=== PATIENT | male | born 1950 | race Caucasian/White ===

== ENCOUNTER 2018-07-17 05:31 | Inpatient (IN) | payer OTHER ==
[2018-07-10 13:33] LABS: URINE BILIRUBIN NEGATIVE (Negative); URINE BLOOD NEGATIVE (Negative); URINE CLARITY CLEAR; URINE COLOR YELLOW; URINE GLUCOSE-RANDOM* NEGATIVE (Negative); URINE KETONES NEGATIVE (Negative); URINE LEUKOCYTES-REFLEX NEGATIVE (Negative); URINE NITRITE-REFLEX NEGATIVE (Negative); URINE PROTEIN (DIPSTICK) NEGATIVE (Negative); URINE UROBILINOGEN 0.2 E.U./dl (0.2-1.0)
[2018-07-10 13:34] LABS: HEMATOCRIT 37.4 % (42.0-52.0); MCH 35.3 pg (26.0-34.0); MCHC 34.8 g/dL (28.0-37.0); MCV 101.5 fL (80.0-100.0); RBC 3.69 mil/uL (4.50-6.00); RDW 13.8 % (10.5-14.5); WBC 6.8 thou/uL (4.0-11.0)
[2018-07-10 13:44] LABS: PROTIME 10.2 Seconds (9.3-11.4)
[2018-07-10 13:50] LABS: ALBUMIN 4.2 g/dL (3.4-5.0); CALCIUM 9.6 mg/dL (8.5-10.1); CREATININE 1.8 mg/dL (0.7-1.3); POTASSIUM 5.1 mmol/L (3.5-5.1)
[2018-07-17] VITALS (9 sets, daily range): BP systolic 120–157; BP diastolic 61–86
[~2018-07-17] VITALS: Ht 180.3 cm; Wt 90.7 kg
--- NOTE | ~2018-07-17 | O ---
[facility] [place] [address] OPERATIVE REPORT Name: SERGIO MATUTE Room #: 150-5 ADM IN M.R.#: [id number] Admission: 07/17/18 Attend Phys: Eric Najera MD Discharge: Date of : 48 Report #: [id number] THIS REPORT FOR: //name// CC: Eric Virgen DATE OF SERVICE: 07/17/2018 PREOPERATIVE DIAGNOSIS: End-stage degenerative osteoarthritis of the left hip. POSTOPERATIVE DIAGNOSIS: End-stage degenerative osteoarthritis of the left hip. PROCEDURE: Left total hip arthroplasty. SURGEON: Eric Najera M.D. INDICATIONS: This active 68-year-old gentleman complains of multiple areas of chronic pain related to degenerative osteoarthritis. This involves both the lumbar spine and both hips. His most significant problem seems to be the left hip, where he has severe pain, significant crepitus and significant x-ray changes. We have elected to go ahead with left total hip arthroplasty at this time. DESCRIPTION OF PROCEDURE: The patient was taken to the operating room, where he was placed under general anesthesia. Prophylactic intravenous antibiotics were administered. He was turned to the right lateral decubitus position. The left hip and thigh were meticulously prepped and draped. A slightly curving skin incision was made centered over the greater trochanter and extending posteriorly. This was passed through fascia and the gluteus was spread bluntly, exposing the posterior aspect of the hip joint. The short external rotators and capsule were taken down and tagged with several #1 Tevdek sutures. The hip was dislocated and marked degenerative change on both the femoral head and the acetabulum was noted. There was significant bony spurring, which was debrided. A femoral neck osteotomy was performed and the canal was opened using reamers and hand broaches. The Barba and Nephew press-fit noncemented stem system was utilized. The femoral stem that seemed to best suited for a size 14 stem. A trial stem was inserted and the calcar trimmed down to an appropriate level. The trial component was removed and attention directed to the acetabulum. Good exposure was established and the acetabulum was sequentially reamed, gradually advancing to a 56-mm reamer. A 56-mm fenestrated cup was then inserted, positioning this in alignment with his true acetabulum, which placed this at about 45 degrees off of vertical and about 20 degrees of anteversion. That cup was impacted into position and it seated nicely and appeared to be secure. In addition, 3 screws were placed through the apex fenestrations in the cup, engaging good periacetabular bone. This resulted in excellent stability. A 40-mm cup liner was then inserted, placing the 20-degree elevated wheatley at the [address] [place] [id number] OPERATIVE REPORT Name: SERGIO MATUTE Room #: 150-5 [facility] IN ..#: [id number] Admission: 07/17/18 Attend Phys: Eric Najera MD Discharge: Date of : 48 Report #: [id number] o'clock posterior position. This was snapped into place and it seated nicely and appeared to be secure. The permanent femoral stem was then brought on to the field. The Barba and Nephew press-fit size 14, standard neck offset was selected. This was then inserted in about 15-20 degrees of anteversion. It was impacted into position and seated nicely and appeared to be secure. A trial reduction was performed and the hip seemed to be best suited for a +4-mm neck length. This resulted in satisfactory alignment, range of motion, stability and leg length. The trial head was removed and a permanent 40 mm x +4 mm cobalt chrome head was then impacted on to the Crocker taper neck. The hip was then reduced and once again, alignment, range of motion, stability and leg length were assessed and felt to be satisfactory. The wound was copiously irrigated. Good hemostasis was established. The short external rotators and capsule were repaired back to bone using the Tevdek sutures passed through drill holes into the greater trochanter. A single Hemovac was left in the wound, exiting through a separate stab incision. The fascia was closed with multiple #1 Vicryl sutures. The subcutaneous tissues were closed with 0 Monocryl. The skin was closed with skin farzana. A sterile dressing was applied. The patient was awakened and returned to the recovery room in good condition. <ELECTRONICALLY SIGNED> By: Eric Najera MD 07/17/18 1126 [id number] Eric Najera MD /nt
--- NOTE | ~2018-07-17 | D ---
[facility] [place] [address] DISCHARGE SUMMARY Name: SERGIO MATUTE Room #: 464-P [facility] IN M.R.#: [id number] Admission: 07/17/18 Attend Phys: Eric Najera MD Discharge: 07/19/18 Date of : 48 Report #: [id number] THIS REPORT FOR: //name// CC: Eric Virgen DATE OF SERVICE: 07/19/2018 FINAL DIAGNOSIS: End-stage degenerative arthritis, left hip. OPERATIONS AND PROCEDURES: Left total hip arthroplasty. HISTORY OF PRESENT ILLNESS: This 68-year-old gentleman complains of chronic progressive left hip pain, unresponsive to conservative measures. Clinical and radiographic evaluation revealed rather significant degenerative osteoarthritis. He has elected to go ahead with total hip arthroplasty. HOSPITAL COURSE: The patient was taken to the operating room and underwent left total hip arthroplasty, which he tolerated well. Postoperatively, his course was largely unremarkable. He was noted to have a mild renal insufficiency, which was evaluated and felt to be stable. He resumed a regular diet. He was placed on Lovenox as a temporary bridge anticoagulation. He was able to advance from IV analgesics to oral analgesics. He did nicely with physical therapy. He seems to be safe and independent, ambulating with a walker with full weightbearing at this point. The dressing is clean and dry. He has no other significant problems or questions and is anxious for hospital discharge home today. DISCHARGE MEDICATIONS: Include allopurinol 300 mg daily, lisinopril 20 mg daily, hydrochlorothiazide 25 mg daily, Flomax 0.4 mg b.i.d., aspirin 81 mg daily, hydrocodone 10 mg q.6 hours p.r.n. for pain. DISCHARGE INSTRUCTIONS: He will continue a regular diet at home. He will transition from Lovenox to low dose aspirin, which we have discussed at some length. He will continue with the gentle activity and exercise program. I have asked him to call me should there be any problems or questions. I will plan to see him back in my office in 1 week for a followup and then again the following week for suture removal. <ELECTRONICALLY SIGNED> By: Eric Najera MD 07/24/18 0743 1322 1347 Eric Najera MD /nt
[~2018-07-17 05:31] MED LIST: ALLOPURINOL 30300 M1 PO; ASPIRIN EC81 M1 PO; AVODART0.5 MG PO; FLOMAX0.4 MG PO; HYDROCHLOROTHIA25 M2 PO; LISINOPRIL20 MG PO; OMEPRAZOLE40 MG PO; TYLENOL EXTRA500 MG PO
[2018-07-18 03:34] VITALS: BP 125/84
[2018-07-18 06:13] LABS: HEMATOCRIT 25.6 % (42.0-52.0); HEMOGLOBIN 9.1 gm/dL (14.0-18.0); MCH 36.1 pg (26.0-34.0); MCHC 35.4 g/dL (28.0-37.0); MCV 102.2 fL (80.0-100.0); RBC 2.51 mil/uL (4.50-6.00); RDW 13.4 % (10.5-14.5); WBC 10.1 thou/uL (4.0-11.0)
[2018-07-18 06:44] LABS: CALCIUM 8.6 mg/dL (8.5-10.1); CREATININE 1.4 mg/dL (0.7-1.3); MAGNESIUM 1.8 mg/dL (1.8-2.4); POTASSIUM 5.4 mmol/L (3.5-5.1)
[2018-07-18 08:00] VITALS: BP 120/80
[2018-07-18 16:00] VITALS: BP 106/61
[2018-07-18 20:33] VITALS: BP 129/74
[2018-07-19 02:55] VITALS: BP 130/74
[2018-07-19 05:56] LABS: HEMATOCRIT 23.3 % (42.0-52.0); HEMOGLOBIN 8.3 gm/dL (14.0-18.0); MCH 36.3 pg (26.0-34.0); MCHC 35.6 g/dL (28.0-37.0); RBC 2.28 mil/uL (4.50-6.00); RDW 13.5 % (10.5-14.5); WBC 6.3 thou/uL (4.0-11.0)
[2018-07-19 06:04] LABS: CALCIUM 8.4 mg/dL (8.5-10.1); CREATININE 1.4 mg/dL (0.7-1.3); MAGNESIUM 1.7 mg/dL (1.8-2.4); POTASSIUM 4.5 mmol/L (3.5-5.1)
[2018-07-19 08:14] VITALS: BP 133/69
[2018-07-19 13:40] VITALS: BP 133/69
== END 2018-07-19 14:50 | disposition home or self-care (01) | DRG 469 ==
LOC: TBA 05:31 → 4W 05:31 → PRE 06:31 → 4W 07:49 → PRE 12:42 → ENTRNSPT 07-19 13:53 → EDTRNSPTSTS 07-19 13:56 → CMPTRNSPT 07-19 14:22 → 4W 07-19 14:50
PROVIDERS: Internal Medicine; Orthopaedic Surgery
PROC: 0SRB0JA Replacement of Left Hip Joint with Synthetic Substitute, Uncemented, Open Approach (ICD-10-PCS; principal; 2018-07-17)
DX: M16.12 Unilateral primary osteoarthritis, left hip (principal); N17.0 Acute kidney failure with tubular necrosis; I12.9 Hypertensive chronic kidney disease with stage 1 through stage 4 chronic kidney disease, or unspecified chronic kidney disease; N40.0 Benign prostatic hyperplasia without lower urinary tract symptoms; D64.9 Anemia, unspecified; M10.9 Gout, unspecified; K21.9 Gastro-esophageal reflux disease without esophagitis; Z23 Encounter for immunization; N18.9 Chronic kidney disease, unspecified; Z79.899 Other long term (current) drug therapy
CPT/HCPCS: 10047; 50010; 50101; 50382; 50414; 51412; 51771; 53000; 53367; 56521; 56525; 56527; 57095; 62110; 62900; 70005

== ENCOUNTER 2019-01-09 05:35 | Inpatient (IN) | payer OTHER ==
[2019-01-01 09:09] LABS: HEMATOCRIT 36.3 % (42.0-52.0); HEMOGLOBIN 12.6 gm/dL (14.0-18.0); MCH 34.8 pg (26.0-34.0); MCHC 34.8 g/dL (28.0-37.0); MCV 100.1 fL (80.0-100.0); RBC 3.63 mil/uL (4.50-6.00); RDW 13.8 % (10.5-14.5); WBC 4.1 thou/uL (4.0-11.0)
[2019-01-01 09:18] LABS: ALBUMIN 3.9 g/dL (3.4-5.0); CALCIUM 9.4 mg/dL (8.5-10.1); CREATININE 1.3 mg/dL (0.7-1.3)
[2019-01-01 09:20] LABS: URINE BILIRUBIN NEGATIVE (Negative); URINE BLOOD NEGATIVE (Negative); URINE CLARITY CLEAR; URINE COLOR YELLOW; URINE GLUCOSE-RANDOM* NEGATIVE (Negative); URINE KETONES NEGATIVE (Negative); URINE LEUKOCYTES-REFLEX NEGATIVE (Negative); URINE NITRITE-REFLEX NEGATIVE (Negative); URINE PROTEIN (DIPSTICK) TRACE (Negative); URINE UROBILINOGEN 0.2 E.U./dl (0.2-1.0)
[2019-01-01 09:47] LABS: CASTS None Seen /LPF (None Seen); SQUAMOUS 4-10 Moderate /LPF (0-3); URINE RBC 0-2 Rare /HPF (0-2); URINE WBC-REFLEX 6-15 Few /HPF (0-5)
[2019-01-01 09:48] LABS: BACTERIA-REFLEX None Seen /HPF (None Seen); CRYSTALS None Seen /LPF (None Seen)
[~2019-01-09] VITALS: Ht 180.3 cm; Wt 92.1 kg
[2019-01-09 09:40] VITALS: BP 156/81
[2019-01-09 15:01] VITALS: BP 142/86
--- NOTE | 2019-01-09 17:02 | O ---
[facility] [place] [address] OPERATIVE REPORT Name: SERGIO MATUTE Room #: 432-P [facility] IN M.R.#: [id number] Admission: 01/09/19 ������������������ Attend Phys: Carl Eastman MD Discharge: ������������������ Date of : 48 Report #: [id number] THIS REPORT FOR: //name// CC: Eric Eastman DATE OF SERVICE: 01/09/2019 SERVICE: Orthopedics. FACILITY: [facility]. SURGEON: Carl Eastman MD. FIXER BOARDING ROOM: Larisa Duff NP. PREOPERATIVE DIAGNOSIS: Varus type osteoarthritis, right knee. POSTOPERATIVE DIAGNOSIS: Varus type osteoarthritis, right knee. PROCEDURES: 1. Right total knee arthroplasty. 2. Computer navigated robotic assistance for total knee replacement. COMPLICATIONS: None. DRAINS: None. SPECIMENS: None. ESTIMATED BLOOD LOSS: 125 mL. ANESTHESIA TYPE: General with regional. FINDINGS: 1. Advanced arthritis. 2. Barba and Nephew Journey II cobalt chrome size 7 femur with size 7 tibia, 11 mm high flexion polyethylene insert and 35 mm patellar button. HISTORY AND INDICATIONS: The patient is a 68-year-old gentleman with history of advanced osteoarthritis of the right knee and had failed conservative measures including rest, activity modification, physical therapy, injections, oral medications and modalities. He had x-rays, which showed [id number] osteoarthritis with subchondral sclerosis, osteophytes and cyst formation and had subsequent deformity and activity limiting daily pain. As a result, he wished to have definitive surgical treatment. We had a discussion about uni [facility] [address] [place] [address] OPERATIVE REPORT Name: SERGIO MATUTE Room #: 432-P [facility] IN M.R.#: [id number] Admission: 01/09/19 ������������������ Attend Phys: Carl Eastman MD Discharge: ������������������ Date of : 48 Report #: [id number] versus total knee arthroplasty with a plan for partial knee if the lateral and patellofemoral compartments looked totally normal. His desire was to minimize the risk of return to the operating room for conversion to a total and so we did agree to favor total knee arthroplasty if there was any question. Risks, benefits, alternatives and indications of surgery were discussed with him in detail. Risks include but not limited to pain, bleeding, infection, injury to nerves or blood vessels, persistent pain despite surgical intervention, failure of any repairs, reconstructions, development of any stiffness, need for further surgery including manipulation as well as revision as well as complications related to anesthesia such as stroke, heart attack, pulmonary complications, thromboembolic disease and . PROCEDURE IN DETAIL: After right lower extremity was correctly identified in the preoperative holding area as the operative extremity, the patient underwent placement of a single shot regional nerve block by anesthesia team. He was then taken to the operating room where general anesthesia was induced without complication. He was padded appropriately. Prophylactic antibiotics were administered at appropriate time. Tourniquet was applied to right lower extremity. Right leg was then prepped and draped in standard sterile fashion. Timeout procedure performed. Standard anterior approach was made to the knee with a smaller incision and a medial parapatellar arthrotomy allowing visualization of the medial compartment where he had advanced osteoarthritis of the knee. The patellofemoral compartments and lateral compartments were then carefully evaluated. Overall, the lateral compartment was healthy. The chondromalacia of the patellofemoral joint as well. The medial compartment wear had extended all the way up to the medial side of the trochlea and there was really significant amount of wear on the trochlea specifically and so this was an indication to proceed with total knee arthroplasty. The skin incision was extended. Arthrotomy was completed and the patella was everted and then we proceeded with a standard exposure for total knee arthroplasty. I resected the anterior horns of the medial and lateral menisci as well as the ACL and PCL and then osteophytes as well. He had a varus deformity. The tracer leads were then placed in the femur and the tibia and then a [employer] and [employer] system was used to collect data on the patient's baseline alignment, which was measured at 4 degrees of varus and assess the sizing of the implants, which we then selected accordingly. The goal was to correct the varus and to allow optimal range of motion and address the medial compartment contracture. The femur was then cut with the robotic-assisted guide and then the 4-in-1 cutting block was placed in typical fashion and the femur was prepared accordingly. The tibia was then prepared in similar fashion. The sizing blocks were placed and we estimated an 11 mm polyethylene insert and then the trials were placed. The knee was taken through range of motion and final implants were selected. The patient was tight medially in both flexion and extension and the soft tissue was quite taut here, so the knee was taken through extension after the implants were removed. [address] [address] OPERATIVE REPORT Name: SERGIO MATUTE Room #: 432-P [facility] IN M.R.#: [id number] Admission: 01/09/19 ������������������ Attend Phys: Carl Eastman MD Discharge: ������������������ Date of : 48 Report #: [id number] lamina television engineering teacher was used to distract the medial joint and then a #11 blade was used to perform a pie-crusting technique to allow release of the deep fibers of MCL, which provided good balancing at this point with the trials and the sizing block. The patella was prepared in a typical fashion. Medial osteophyte was removed and the lateral facet was removed as well. After final implants were selected, the first four 30 mL syringes of the periarticular injection cocktail was placed in the posterior aspect of the knee with care taken to aspirate prior to injection for postoperative pain control. Osteophytes were removed, particularly of the anteromedial border of the tibia and then the knee was prepared with the pulse lavage for final implant positioning. The implants were then cemented into position. The knee was placed in full extension. Extra cement was resected. The 11 mm posterior stabilized trial was then placed into position with the size 7 tibial tray cemented into position and fitting appropriately. The patella was then cemented in position. At this point, tourniquet was let down. Hemostasis was achieved and then the remaining syringes were used for the periarticular injection cocktail to provide postoperative analgesia. After this was completed, the knee was taken through range of motion and was found to be well balanced with the [address], so we selected the final 11 mm tibial implant. The knee was copiously irrigated with pulse lavage and then the 11 mm polyethylene tibial insert was snapped in position. The arthrotomy was then closed with 0 Vicryl suture in [id number] fashion. [place]se[place] flexion test was then performed to confirm watertight closure of the arthrotomy and then the skin was closed with 2-0 Vicryl followed by running subcuticular 3-0 Monocryl and Dermabond. A sterile dressing was then applied followed by a compression stocking and ice cold therapy device. The patient was awakened from anesthesia and taken to recovery room in stable condition. There were no complications. All counts were recorded as correct. ��������������������������������������������� <ELECTRONICALLY SIGNED> ���������������������������������������� By: Carl Eastman MD ��������������������������������������������� 01/09/19 1702 1313 1343 Carl Eastman MD /nt
--- NOTE | 2019-01-09 17:05 | NUR ---
Pt arrived to floor per bed from recovery room in stable condition at 1430. Post op vss.Assessment completed.Box sandwich and cold drink provided for lunch.Dr Anguiano notified about consult and he said Dr Stewart will be seen pt. Ivf initiated and pt ate 100% of the sandwich given with drink.No verbal c/o. Will continue to monitor.
[2019-01-09 20:00] VITALS: BP 144/72
--- NOTE | 2019-01-09 20:00 | NUR ---
ASSISTED TO VOID BY SITTING AT EDGE OF BED, VOIDED 50 ML, SCANNED POST VOID IS 388 ML, EXPLAINED ABOUT ST CATH, PT REQUESTED TO GIVE HIM MORE TIME SINCE RIGHT NOW HE IS NOT HAVING BLADDER PAIN, WILL CONTINUE TO MONITOR.
--- NOTE | 2019-01-10 01:12 | NUR ---
PT ASSISTED TO BEDSIDE AND DANGLED TO URINATE, ONLY URINATED 50 ML, CONTINUE TO ENC. TO DRINK LOTS OF WATER, HE VOIDED NEXT TIME AROUND 400 ML, NO NAUSEA NOTED, POLAR ICE FUNCTIONAL, SANTI DRESSING PATENT, PAIN CONTROLLED, TOOKE HS MEDS WITH NO DIFFICULTY, ABLE TO LIFT RIGHT LEG, HOURLY ROUNDING, MONITORED.
[2019-01-10 04:30] VITALS: BP 137/69
[2019-01-10 05:08] LABS: HEMATOCRIT 31.4 % (42.0-52.0); HEMOGLOBIN 10.7 gm/dL (14.0-18.0); MCH 34.7 pg (26.0-34.0); MCHC 34.1 g/dL (28.0-37.0); MCV 101.8 fL (80.0-100.0); RBC 3.09 mil/uL (4.50-6.00); RDW 14.3 % (10.5-14.5); WBC 11.5 thou/uL (4.0-11.0)
[2019-01-10 05:16] LABS: CALCIUM 8.2 mg/dL (8.5-10.1); CREATININE 1.5 mg/dL (0.7-1.3); POTASSIUM 4.9 mmol/L (3.5-5.1)
[2019-01-10 08:15] VITALS: BP 133/66
[2019-01-10] MEDS ORDERED: MIRALAX17 GM PO (09:19)
[2019-01-10] MEDS ORDERED: COLACE100 MG PO (09:19)
[2019-01-10] MEDS ORDERED: XARELTO10 MG PO (09:23)
[2019-01-10 11:24] VITALS: BP 133/66
--- NOTE | 2019-01-10 11:50 | NUR ---
DC INTRUSCTIONS GIVEN TO PT AND . BOTH VERBALIZED UNDERSTANDING. IV DCD BY CHIEF LEARNING OFFICER.
--- NOTE | 2019-01-10 16:14 | NUR ---
PT ADMITTED RELATED TO RT TKR. CM REVIEWED CHART AND SPOKE WITH PT AT BEDSIDE THIS DAY. PT IS A&O X4. CM ROLE INTRODUCED. PT INDICATED HE LIVES IN A HOUSE WITH HIS SPOSUE WITH 2 STEPS TO ENTER AND 2 FULL FLIGHTS OF STEPS INSIDE. PT INDICATED HE HAS A FWW FOR USE UPON DC. PT INDICATED HE IS ESTABLISHED WITH OP PT APPOINTMENT TUESDAY OF THIS WEEK. PT IS TO DC HOME THIS DAY. NO OTHER CM INTERVENTIN INDICATED AT THIS TIME. CASE CLOSED.
== END 2019-01-10 12:03 | disposition home or self-care (01) | DRG 470 ==
LOC: 4E 05:35 → TBA 05:35 → PRE 05:40 → 4E 14:36 → ENTRNSPT 01-10 11:32 → EDTRNSPTSTS 01-10 12:00 → 4E 01-10 12:03
PROVIDERS: ADMIT Orthopaedic Surgery Sports Medicine
PROC: 0SRC0J9 Replacement of Right Knee Joint with Synthetic Substitute, Cemented, Open Approach (ICD-10-PCS; principal; 2019-01-09)
PROC: 8E0Y0CZ Robotic Assisted Procedure of Lower Extremity, Open Approach (ICD-10-PCS; principal; 2019-01-09)
DX: M17.11 Unilateral primary osteoarthritis, right knee (principal); N17.9 Acute kidney failure, unspecified; M10.9 Gout, unspecified; I10 Essential (primary) hypertension; N40.0 Benign prostatic hyperplasia without lower urinary tract symptoms; K21.9 Gastro-esophageal reflux disease without esophagitis; Z96.642 Presence of left artificial hip joint; Z87.891 Personal history of nicotine dependence; Z98.52 Vasectomy status; Z79.899 Other long term (current) drug therapy
CPT/HCPCS: 10783; 50010; 50101; 50415; 50954; 51130; 51225; 51320; 52001; 52282; 53000; 53078; 53364; 54118; 56527; 56528; 57095; 57103; 57110; 57127; 57180; 62110; 62900; 70005